=== PATIENT | female | born 1960 | race Caucasian/White ===

== ENCOUNTER 2020-07-20 15:13 | Observation (INO) ==
[2020-07-20] MEDS ORDERED: SODIUM CHLORIDE 0.9% 1,000 ML IV STA (16:18)
[2020-07-20] MEDS ORDERED: ONDANSETRON 4 MG/2 ML VIAL IV ONE (16:18)
[2020-07-20] MEDS ORDERED: DICYCLOMINE 20 MG/2 ML AMP IM ONE (16:19)
[2020-07-20 16:26] LABS: Bilirubin,Urine Negative (Negative); Blood, Urine Negative (Negative); Glucose,Urine (UA) Negative (Negative); Hyaline Casts,Urine 10 /LPF (0-3); Ketones,Urine Negative (Negative); Mucus,Urine Occasional /LPF (Occasional); Nitrite,Urine Negative (Negative); Protein,Urine Negative; RBC,Urine 2 /HPF (0-4); Squamous Epithelial Cell,Urine Occasional /HPF (0-10); Urine Appearance CLEAR (Clear); Urine Color Yellow (Yellow); Urine Specific Gravity 1.021 (1.001-1.035); Urine Urobilinogen < 2.0 EU/DL (0.2-1.0); WBC,Urine 2 /HPF (0-6)
[2020-07-20 16:39] LABS: Basophils % 0.3 % (0.0-0.8); Eosinophils % 0.2 % (0.00-10.9); Hematocrit 41.8 VOL% (35.7-47.0); Hemoglobin 13.8 GM/DL (12.0-16.0); Immature Granulocytes % 0.4 %; Immature Granulocytes Absolute 0.05 #; Lymphocytes % 8.8 % (21.3-54.2); Mean Corpuscular Volume 84.8 FL (87-102); Mean Platelet Volume 9.4 FL (9.6-12.0); Monocytes % 7.7 % (1.7-12.7); Neutrophils % 82.6 % (38.7-73.9); Platelet Count 284 T/CUMM (130-400); Red Blood Count 4.93 MC/CUMM (3.8-5.5); Red Cell Distribution Width 13.2 % (9.3-17.3); White Blood Count 11.8 T/CUMM (4-12)
[2020-07-20 17:06] LABS: Albumin 3.7 G/DL (3.4-5.0); Bilirubin,Total 0.4 MG/DL (0.2-1.0); Calcium 8.8 MG/DL (8.5-10.1); Osmolality,Calculated 273.1 MOS/KG (273-304); Total Protein 8.1 G/DL (6.4-8.3)
[2020-07-20] MEDS ORDERED: CIPROFLOXACIN INJ 400 MG in PREMIX 1 EACH IV STA (17:33)
[2020-07-20] MEDS ORDERED: metroNIDAZOLE INJ 500 MG in PREMIX 1 EACH IV STA (17:33)
[2020-07-20] MEDS ORDERED: cefTRIAXone 1,000 MG in SODIUM CHLORIDE 0.9% 100 ML IV STA (18:42)
[2020-07-20] MEDS ORDERED: MAGNESIUM SULF RIDER 2 GM in PREMIX 1 EACH IV PRN (19:26)
[2020-07-20] MEDS ORDERED: DEXTROSE 50% 25 GM/50 ML VIAL IV PRN (19:26)
[2020-07-20] MEDS ORDERED: MAGNESIUM SULF RIDER 4 GM in PREMIX 1 EACH IV PRN (19:26)
[2020-07-20] MEDS ORDERED: hydrALAZINE 20 MG/1 ML VIAL IV PRN (19:26)
[2020-07-20] MEDS ORDERED: ACETAMINOPHEN 325 MG TABLET PO PRN (19:26)
[2020-07-20] MEDS ORDERED: PROMETHAZINE 25 MG/1 ML VIAL IM PRN (19:26)
[2020-07-20] MEDS ORDERED: GLUCAGON 1 MG VIAL IM PRN (19:26)
[2020-07-20] MEDS ORDERED: ONDANSETRON 4 MG/2 ML VIAL IV PRN (19:26)
[2020-07-20] MEDS ORDERED: metroNIDAZOLE INJ 500 MG in PREMIX 1 EACH IV SCH (20:00)
[2020-07-20] MEDS ORDERED: CIPROFLOXACIN INJ 400 MG in PREMIX 1 EACH IV SCH (22:00)
[2020-07-20] MEDS: DEXTROSE 5% NACL 0.9% 1,000 ML IV SCH (22:00)
[2020-07-21] MEDS: metroNIDAZOLE INJ 500 MG in PREMIX 1 EACH IV SCH ×4 (02:50→20:28)
[2020-07-21] MEDS: CIPROFLOXACIN INJ 400 MG in PREMIX 1 EACH IV SCH ×2 (05:33→19:14)
[2020-07-21 05:41] LABS: Basophils % 0.2 % (0.0-0.8); Eosinophils # 0.1 10*3/uL (0.0-0.87); Eosinophils % 1.3 % (0.00-10.9); Hematocrit 39.1 VOL% (35.7-47.0); Hemoglobin 12.7 GM/DL (12.0-16.0); Immature Granulocytes % 0.4 %; Immature Granulocytes Absolute 0.03 #; Lymphocytes # 1.1 10*3/uL (1.4-4.0); Lymphocytes % 13.7 % (21.3-54.2); Mean Corpuscular HGB Conc 32.5 GM/DL (32-36); Mean Corpuscular Volume 85.7 FL (87-102); Mean Platelet Volume 10.2 FL (9.6-12.0); Monocytes % 11.5 % (1.7-12.7); Neutrophils % 72.9 % (38.7-73.9); Platelet Count 243 T/CUMM (130-400); Red Blood Count 4.56 MC/CUMM (3.8-5.5); Red Cell Distribution Width 13.2 % (9.3-17.3); White Blood Count 8.2 T/CUMM (4-12)
[2020-07-21 05:50] LABS: Calcium 8.2 MG/DL (8.5-10.1); Osmolality,Calculated 279.4 MOS/KG (273-304)
[2020-07-21] MEDS: PANTOPRAZOLE 40 MG VIAL IV SCH (11:24)
[2020-07-21] MEDS: DEXTROSE 5% NACL 0.9% 1,000 ML IV SCH (11:25)
[2020-07-21] MEDS ORDERED: BISACODYL 5 MG TABLET PO ONE (12:00)
[2020-07-21] MEDS: MORPHINE 4 MG/1 ML VIAL IV PRN (14:19)
[2020-07-21] MEDS ORDERED: POLYETHYLENE GLYCOL POWDER 255 GM BOTTLE PO ONE (18:00)
[2020-07-22] MEDS: metroNIDAZOLE INJ 500 MG in PREMIX 1 EACH IV SCH ×4 (01:23→20:36)
[2020-07-22] MEDS: DEXTROSE 5% NACL 0.9% 1,000 ML IV SCH (01:25)
[2020-07-22] MEDS: CIPROFLOXACIN INJ 400 MG in PREMIX 1 EACH IV SCH ×2 (04:24→21:42)
[2020-07-22 05:21] LABS: Basophils % 0.6 % (0.0-0.8); Eosinophils # 0.2 10*3/uL (0.0-0.87); Eosinophils % 2.6 % (0.00-10.9); Hematocrit 30.8 VOL% (35.7-47.0); Hemoglobin 9.7 GM/DL (12.0-16.0); Immature Granulocytes % 0.3 %; Immature Granulocytes Absolute 0.02 #; Lymphocytes # 1.2 10*3/uL (1.4-4.0); Lymphocytes % 17.4 % (21.3-54.2); Mean Corpuscular HGB Conc 31.5 GM/DL (32-36); Mean Platelet Volume 9.8 FL (9.6-12.0); Monocytes % 10.5 % (1.7-12.7); Neutrophils % 68.6 % (38.7-73.9); Platelet Count 171 T/CUMM (130-400); Red Blood Count 3.54 MC/CUMM (3.8-5.5)
[2020-07-22 05:28] LABS: PT Patient Result 10.9 SECS (9.8-11.9)
[2020-07-22 05:45] LABS: Calcium 7.7 MG/DL (8.5-10.1); Osmolality,Calculated 269.1 MOS/KG (273-304)
[2020-07-22 06:38] LABS: Anisocytosis Slight; Platelet Estimate Normal
[2020-07-22 06:39] LABS: Ovalocytes Few
[2020-07-22] MEDS ORDERED: MAGNESIUM SULF RIDER 2 GM in PREMIX 1 EACH IV PRN (07:12)
[2020-07-22] MEDS ORDERED: MAGNESIUM SULF RIDER 4 GM in PREMIX 1 EACH IV PRN (07:12)
[2020-07-22] MEDS ORDERED: SODIUM CHLORIDE 0.9% 1,000 ML IV SCH (08:00)
[2020-07-22] MEDS ORDERED: MAGNESIUM SULF RIDER 4 GM in PREMIX 1 EACH IV ONE (08:30)
[2020-07-22] MEDS: MORPHINE 4 MG/1 ML VIAL IV PRN ×2 (10:00→16:56)
[2020-07-22] MEDS: PANTOPRAZOLE 40 MG VIAL IV SCH (10:00)
[2020-07-22] MEDS ORDERED: LIDOCAINE 2% 5 ML VIAL ONE (10:02)
[2020-07-22] MEDS ORDERED: propofoL 200 MG/20 ML VIAL IV ONE (10:02)
[2020-07-23] MEDS: metroNIDAZOLE INJ 500 MG in PREMIX 1 EACH IV SCH ×3 (03:10→13:46)
[2020-07-23 05:53] LABS: Basophils % 0.6 % (0.0-0.8); Eosinophils # 0.1 10*3/uL (0.0-0.87); Eosinophils % 3.8 % (0.00-10.9); Hematocrit 29.9 VOL% (35.7-47.0); Hemoglobin 9.5 GM/DL (12.0-16.0); Immature Granulocytes % 0.3 %; Immature Granulocytes Absolute 0.01 #; Lymphocytes % 30.7 % (21.3-54.2); Mean Corpuscular HGB Conc 31.8 GM/DL (32-36); Mean Corpuscular Volume 88.7 FL (87-102); Mean Platelet Volume 11.5 FL (9.6-12.0); Monocytes % 11.2 % (1.7-12.7); Neutrophils % 53.4 % (38.7-73.9); Red Blood Count 3.37 MC/CUMM (3.8-5.5); Red Cell Distribution Width 13.1 % (9.3-17.3)
[2020-07-23] MEDS: DEXTROSE 5% NACL 0.9% 1,000 ML IV SCH (05:55)
[2020-07-23 06:17] LABS: Osmolality,Calculated 278.4 MOS/KG (273-304)
[2020-07-23 06:26] LABS: Platelet Count 125 T/CUMM (130-400); White Blood Count 3.1 T/CUMM (4-12)
[2020-07-23] MEDS: CIPROFLOXACIN INJ 400 MG in PREMIX 1 EACH IV SCH (09:27)
[2020-07-23] MEDS: MORPHINE 4 MG/1 ML VIAL IV PRN ×2 (09:27→14:26)
[2020-07-23] MEDS: PANTOPRAZOLE 40 MG VIAL IV SCH (10:20)
[2020-07-23 16:17] VITALS: BP 133/87
== END 2020-07-23 17:00 | disposition home or self-care (01) ==
LOC: N.EDINP 15:13 → N.ED 15:13 → N.3E 21:36
PROVIDERS: ADMIT Internal Medicine; ATTEND Internal Medicine
PROC: COLONBX (2020-07-22 06:05)

== ENCOUNTER 2021-09-07 21:13 | Observation (INO) ==
[2021-09-07] MEDS ORDERED: ONDANSETRON 4 MG/2 ML VIAL IV STA (21:37)
[2021-09-07] MEDS ORDERED: SODIUM CHLORIDE 0.9% 1,000 ML IV STA (21:37)
[2021-09-07 23:35] LABS: Basophils % 0.3 % (0.0-0.8); Eosinophils # 0.1 10*3/uL (0.0-0.87); Eosinophils % 1.7 % (0.00-10.9); Hematocrit 34.4 VOL% (35.7-47.0); Hemoglobin 10.8 GM/DL (12.0-16.0); Immature Granulocytes % 0.3 %; Immature Granulocytes Absolute 0.01 #; Lymphocytes # 0.4 10*3/uL (1.4-4.0); Lymphocytes % 13.8 % (21.3-54.2); Mean Corpuscular HGB Conc 31.4 GM/DL (32-36); Mean Platelet Volume 10.6 FL (9.6-12.0); Monocytes % 8.4 % (1.7-12.7); Neutrophils % 75.5 % (38.7-73.9); Platelet Count 228 T/CUMM (130-400); Red Blood Count 3.91 MC/CUMM (3.8-5.5); Red Cell Distribution Width 13.7 % (9.3-17.3)
[2021-09-07 23:40] LABS: Alanine Aminotransferase 19 U/L (13-56); Albumin 3.1 G/DL (3.4-5.0); Alkaline Phosphatase 91 U/L (45-117); Aspartate Amino Transferase 23 U/L (0-37); Bilirubin,Total < 0.39 MG/DL (0.20-1.00); Blood Urea Nitrogen 17 MG/DL (7-18); Calcium 8.1 MG/DL (8.5-10.1); Carbon Dioxide 24 MMOL/L (21-32); Estimated Glom Filtration Rate 35 ML/MIN; Glucose 110 MG/DL (74-106); Osmolality,Calculated 272.1 MOS/KG (273-304); Potassium 4.5 MMOL/L (3.5-5.1); Sodium 135 MMOL/L (136-145); Total Protein 6.8 G/DL (6.4-8.2)
[2021-09-08] MEDS ORDERED: SODIUM CHLORIDE 0.9% 1,000 ML IV STA (01:02)
[2021-09-08] MEDS ORDERED: GLUCAGON 1 MG VIAL IM PRN (03:19)
[2021-09-08] MEDS ORDERED: ONDANSETRON 4 MG/2 ML VIAL IV PRN (03:29)
[2021-09-08] MEDS ORDERED: ACETAMINOPHEN 325 MG TABLET PO PRN (03:29)
[2021-09-08] MEDS ORDERED: SODIUM CHLORIDE 0.9% 1,000 ML IV SCH (03:30)
[2021-09-08] MEDS ORDERED: DEXTROSE 10% 250 ML BAG IV PRN (03:41)
[2021-09-08] MEDS ORDERED: LOPERAMIDE 2 MG CAPSULE PO PRN (06:04)
[2021-09-08] MEDS ORDERED: PANTOPRAZOLE 40 MG TABLET PO SCH (09:00)
[2021-09-08 12:09] VITALS: BP 133/92
== END 2021-09-08 12:06 | disposition home or self-care (01) ==
LOC: EDUNIT# → EDBD → N.EDINP 21:13 → N.ED 21:13 → N.EDINP 09-08 12:09
PROVIDERS: ADMIT Internal Medicine; ATTEND Internal Medicine